=== PATIENT | male | born 1995 | race Two or more races ===

== ENCOUNTER 2024-10-28 17:15 | Emergency (ER) | payer MEDICAID, SELFPAY ==
[2024-10-28 17:16] VITALS: BMI 28.1
[2024-10-28 17:56] VITALS: BP 133/81; PULSE 62; RESP 18; TEMP 37.1; O2SAT 97
--- NOTE | 2024-10-28 18:01 | EDNOTE_ITS ---
<Statement entered by Cinthya Bryson MD - 10/29/24 00:56> As co-signing physician, I was present and available for consult prn. I concur with the plan and care as documented by the midlevel provider. ED Headache RME/HPI General Chief Complaint: Headache Stated Complaint: HEADACHE/DIZZY X2 WEEKS Time Seen by Provider: 10/28/24 17:59 Arrival date/time: 10/28/24 17:15 Limitations: no limitations RME / HPI RME / HPI Narrative: 29m here for headache and dizziness x 2wks. Finally came in due to worsening headaches. No vomiting. no diarrhea. no fever. no hx of dm. occassional drinker. non smoker. no drugs. no actual syncope. Other than seasonal allergies when she does not treat does not have any chronic conditions Related Data Previous Rx's ?Medication ?Instructions ?Recorded ibuprofen 800 mg tablet 800 mg PO TID PRN pain #30 t abs 10/21/19 naproxen 500 mg tablet 500 mg PO BID PRN pain #30 t abs 07/18/21 ondansetron 4 mg disintegrating 4 mg PO Q8H PRN nausea and 07/18/21 tablet vomiting #9 tabs ondansetron 4 mg disintegrating 4 mg PO Q8H PRN nausea and 12/28/23 tablet vomiting #14 tabs IBU 800 mg tablet (ibuprofen) 800 mg PO Q6H PRN pain # 30 tabs 10/28/24 amoxicillin 875 mg-potassium 1 tab PO BID 10 days #20 tabs 10/28/24 clavulanate 125 mg tablet pseudoephedrine HCl 30 mg tablet 30 mg PO BID #14 tabs 10/28/24 (Sudogest) Allergies Allergy/AdvReac Type Severity Reaction Status Date / Time No Known Allergies Allergy Verified 07/18/21 18:14 Review of Systems Review of Systems Systems Reviewed: All systems reviewed, normal except as documented Constitutional Constitutional: Denies fever(s) ENT Ears, Nose, Mouth, and Throat: Reports as per HPI Neurologic Neurologic: Reports as per HPI and Denies seizure-like activity ED Exam General Limitations: Present no limitations General appearance: Present alert and in no apparent distress Head Head exam: Present other (TTP to bilateral maxillary and frontal sinuses) Eye Eye exam: Present normal appearance, PERRL and EOMI ENT ENT exam: Present normal exam, normal oropharynx, mucous membranes moist and TM's normal bilaterally Neck Neck exam: Present normal inspection, full ROM and trachea midline Chest Chest inspection: Present normal inspection and symmetric chest wall rise Respiratory Respiratory exam: Present normal lung sounds bilaterally Cardiovascular Cardiovascular exam: Present regular rate, normal rhythm and normal heart sounds Abdominal Exam Abdominal exam: Present soft and normal bowel sounds Extremities Exam Extremities exam: Present normal inspection and full ROM Back Exam Back exam: Present normal inspection and full ROM Neurological Exam Neurological exam: Present alert, oriented X3, CN II-XII intact and other (Negative meningeal signs) Psychiatric Psychiatric exam: Present normal affect and normal mood Skin Skin exam: Present warm, dry, intact and normal color Course Quality Measures none Orders Category Date Time Status CT head/brain wo con Stat Exams 10/28/24 18:04 Completed CBC Stat Lab 10/28/24 19:15 Completed CMP [Comprehensive Metabolic Panel] Stat Lab 10/28/24 19:15 Completed Drug Screen,Urine Stat Lab 10/28/24 20:50 Completed Lipase Stat Lab 10/28/24 19:15 Completed UA [Urinalysis] Stat Lab 10/28/24 20:50 Completed Amoxicillin/Pot Clav 875 [Augmentin 875] Med 10/28/24 21:17 Discontinued 1 tab PO X1 ONE Ketorolac Inj [Toradol Inj] Med 10/28/24 18:06 Discontinued 30 mg IM X1 ONE Vital Signs Vital signs: Vital Signs Temperature 98.7 F 10/28/24 17:56 Pulse Rate 62 10/28/24 17:56 Respiratory Rate 18 10/28/24 17:56 Blood Pressure 133/81 H 10/28/24 17:56 Pulse Oximetry (%) 97 10/28/24 17:56 Oxygen Delivery Method Room Air 10/28/24 17:56 Headache Patient data External records reviewed:: [facility] previous records Clinical information provided by:: patient Social determinants that could affect healthcare access:: other (specify) (Does not have PCP) Patient has the following chronic illnesses:: Seasonal allergies How is presenting disease/condition affected by chronic disease/condition?: caused by Evaluation data The following diagnostics were reviewed and interpreted by me:: lab results and radiology exam(s) Lab and/or radiology exams considered but not ordered:: Lumbar puncture was considered however after imaging resulted unlikely to warrant further invasive procedures Interpretation Summary: Normal CBC normal CMP negative drug screen negative UA, CT did show bilateral maxillary sinusitis Medications / Prescriptions Medications or Prescriptions considered but not ordered:: All medications other than maintenance medication for allergies Medication administrations:: Medication Administration History Discontinued Medications Amoxicillin/Clavulanate Potassium (Amoxicillin/Pot Clav 875 Tablet) 1 tab PO X1 ONE Stop: 10/28/24 21:18 Last Admin: 10/28/24 21:25 Dose: 1 tab Documented By: EF Ketorolac Tromethamine (Ketorolac Inj 60 Mg/2 Ml Vial) 30 mg IM X1 ONE Stop: 10/28/24 18:07 Last Admin: 10/28/24 18:10 Dose: 30 mg Documented By: EF 70 Consultations Consultation(s) initiated? (list below): No Diagnosis Differential diagnosis headache: migraine, tension headache, subarachnoid hemorrhage, headache, meningitis and sinusitis Most likely diagnosis given after review of the tests above:: Sinus headache Admission Indicated Admission indicated?: not indicated Admission Request Was there a request for admission?: No Disposition Plan Disposition Plan: Discharge Discharge Attestation Discharge Attestation: The patient and all family members were given an opportunity to ask questions and understood the discharge instructions. Discharge instructions specifically effects, indications for sooner follow up or return to the emergency department, and the expected course of current diagnosis. Patient condition: Stable Discharge Plan Plan Patient Disposition: HOME (Self Care) Discharge Disposition comment: f/u with pcp in 2-3days Prescriptions/Referrals Prescriptions/Med Rec: New amoxicillin-pot clavulanate 875-125 mg tablet 1 tab PO BID 10 Days Qty: 20 0RF pseudoephedrine HCl [Sudogest] 30 mg tablet 30 mg PO BID Qty: 14 0RF ibuprofen [IBU] 800 mg tablet 800 mg PO Q6H PRN (Reason: pain) Qty: 30 0RF No Action ibuprofen 800 mg tablet 800 mg PO TID PRN (Reason: pain) Qty: 30 0RF ondansetron 4 mg tablet,disintegrating 4 mg PO Q8H PRN (Reason: nausea and vomiting) Qty: 9 0RF naproxen 500 mg tablet 500 mg PO BID PRN (Reason: pain) Qty: 30 0RF ondansetron 4 mg tablet,disintegrating 4 mg PO Q8H PRN (Reason: nausea and vomiting) Qty: 14 0RF Referrals: Montana Joe MD [Primary Care Provider] - In 1 week Problem List Clinical Impression: Headache, Sinusitis Patient/Caregiver Discharge Instructions Education Materials: ED Sinusitis (Antibiotic Treatment) Print Language: Colombian Stand Alone Forms: Juliet Award Info., Patient Portal Info Letter PA/ESTATE PLANNER Supervising Physician PA/ESTATE PLANNER Supervising Physician: Dr. bryson
--- NOTE | 2024-10-28 18:04 | XR_ITS ---
Examination: CT brain head without contrast. 2-D sagittal coronal reconstructions Date and time of exam:October 28, 2024 1814 hours INDICATIONS: New onset headaches today CTDI: vol (mGy):50.1 DLP: (mGycm):954 Technique: Multiple CT axial sections of the brain have been obtained, 5 mm slice thickness. Contrast has not been administered. 2-D sagittal, coronal reconstructions have been obtained Low dose protocols were performed. One or more of the following dose reduction techniques were used; automated exposure control, adjustment of the mA and/or KV according to patient size, use of iterative reconstruction technique. Findings: No significant ventricular enlargement. Intra-axial or extra-axial hemorrhage density is not seen. No mass effect or midline shift Basal cisterns are not remarkable. Fourth ventricle is midline. Cranial vault intact. Multiple maxillary antral retention cysts Impression: Negative for acute hemorrhage, mass effect or midline shift Multiple retention cysts in the maxillary antra
[2024-10-28] MEDS: KETOROLAC INJ 60 MG/2 ML VIAL 30 MG IM (18:10)
[2024-10-28 19:39] LABS: Basophils % (Auto) 0 % (0-2.5); Eosinophils # (Auto) 0.1 Thou/mm3 (0.0-0.5); Eosinophils % (Auto) 1 % (0-10); Hematocrit 42.1 % (41.0-53.0); Hemoglobin 14.9 g/dL (13.5-16.0); Immature Granulocytes % (Auto) 0 % (0-0); Immature Granulocytes Auto 0.01 Thou/mm3 (0.00-0.00); Lymphocytes # (Auto) 2.2 Thou/mm3 (1.0-4.8); Lymphocytes % (Auto) 35 % (10-50); Mean Corpuscular HGB Conc 35.4 g/dl (31.0-37.0); Mean Corpuscular Volume 85 fL (80-100); Monocytes # (Auto) 0.5 Thou/mm3 (0.0-0.8); Monocytes % (Auto) 8 % (0-12); Neutrophils # (Auto) 3.5 Thou/mm3 (1.8-7.7); Neutrophils % (Auto) 55 % (37-80); Nucleated Red Blood Cell % 0 /100 WBC (0); Platelet Count 177 Thou/mm3 (140-440); RDW Standard Deviation 40.3 fL (35.1-43.9); Red Blood Count 4.96 Miln/mm3 (4.50-5.90); White Blood Count 6.4 Thou/mm3 (3.8-10.6)
[2024-10-28 20:07] LABS: Alanine Aminotransferase 40 U/L (10-49); Albumin, Serum 4.7 gm/dL (3.5-5.0); Alkaline Phosphatase 75 U/L (46-116); Anion Gap 13 (7-16); BUN/Creatinine Ratio 15 Ratio (12-20); Bilirubin,Total 0.4 mg/dL (0.3-1.2); Blood Urea Nitrogen 15 mg/dL (9-23); Calcium 9.2 mg/dL (8.3-10.6); Calcium (Corrected) 9.2 mg/dL (8.5-10.1); Carbon Dioxide 24.2 mMol/L (20.0-31.0); Chloride 106 mMol/L (98-107); Estimated Creatinine Clearance 112.5 mL/min (>60); Globulin 2.4 gm/dL (2.3-3.5); Glucose 98 mg/dL (74-106); Lipase 33 U/L (12-53); Osmolality,Calculated 285 (275-295); Potassium 4.2 mMol/L (3.4-5.1); Sodium 143 mMol/L (136-145); Total Protein 7.1 gm/dL (5.7-8.2); eGFR > 60 See Note
[2024-10-28 21:01] LABS: Collection Type, Urine Clean Catch
[2024-10-28 21:25] LABS: Bilirubin,Urine Negative (Negative); Blood,Urine Negative (Negative); Clarity,Urine Clear (Clear/Hazy); Color,Urine Lt-Yellow (Lt Yel-Yel); Glucose, Urine Negative (Negative); Ketones,Urine Negative (Negative); Leukocyte Esterase,Urine Negative (Negative); Nitrite,Urine Negative (Negative); PH,Urine 5.5 (5.0-7.0); Protein,Urine Negative (Neg - Trace); RBC,Urine 3 /hpf (0-3); Squamous Epithelial Cell,Urine < 1 /hpf (0-5); Urobilinogen,Urine Negative mg/dL (0.0-1.0); WBC,Urine < 1 /hpf (0-5)
[2024-10-28] MEDS: AMOXICILLIN/POT CLAV 875 TABLET 1 TAB PO (21:25)
[2024-10-28 21:27] LABS: Amphetamine/Methamp Scrn,U Negative (Negative); Barbiturate Screen,Urine Negative (Negative); Benzodiazepines Screen,Urine Negative (Negative); Benzoylecgonine Screen, Ur Negative (Negative); Fentanyl Screen,Urine Negative (Negative); Opiate Screen,Urine Negative (Negative); THC Screen,Urine Negative (Negative)
[2024-10-28 21:30] VITALS: BP 125/87; PULSE 56; RESP 17; TEMP 36.4; O2SAT 97
== END 2024-10-28 21:31 | disposition home or self-care (01) ==
PROVIDERS: Physician Assistant; Emergency Provider Emergency Medicine; PCP Family Medicine
DX: J32.0 Chronic maxillary sinusitis (principal)
CPT/HCPCS: 36415; 70450; 80053; 80307; 81001; 83690; 85025; 96372; 99284; J1885; A9270